=== PATIENT | female | born 1955 | race African-American/Black ===

== ENCOUNTER 2017-06-16 08:47 | Day surgery (SDC) | payer OTHER ==
[2017-06-15 13:50] VITALS: BMI 33.3
[2017-06-16] MEDS ORDERED: oxyCODONE HCL 5 MG TABLET PO PRN (09:27)
[2017-06-16] MEDS ORDERED: ONDANSETRON 4 MG/2 ML VIAL IVPUSH PRN (09:27)
[2017-06-16] MEDS ORDERED: LACTATED RINGERS SOLUTION 1,000 ML IV SCH (09:30)
[2017-06-16] MEDS ORDERED: LIDOCAINE HCL 1%, 10 MG/ML (20ML VIAL) ONE (11:43)
[2017-06-16] MEDS ORDERED: BUPIVACAINE HCL/PF 0.5% (5MG/ML) 10 ML VIAL ONE ×2 (11:43→12:35)
[2017-06-16] MEDS ORDERED: MIDAZOLAM HCL 2 MG/2 ML SINGLE DOSE VIAL ONE ×2 (11:43→12:10)
[2017-06-16] MEDS ORDERED: ceFAZolin SODIUM 1 GM VIAL ONE (11:56)
[2017-06-16] MEDS ORDERED: LIDOCAINE HCL/PF 2% SDV 5ML VIAL ONE (12:00)
[2017-06-16] MEDS ORDERED: BUPIVACAINE HCL/PF 0.5% (5MG/ML) 10 ML VIAL NR ONE ×2 (12:00→12:44)
[2017-06-16] MEDS ORDERED: LIDOCAINE HCL 1%, 10 MG/ML (20ML VIAL) INF ONE (12:00)
[2017-06-16] MEDS ORDERED: PROPOFOL 20 ML ONE (12:00)
[2017-06-16] MEDS ORDERED: BACITRACIN 50,000 UNITS VIAL TP ONE (12:25)
[2017-06-16] MEDS ORDERED: DEXAMETHASONE SOD PHOSPHATE 4 MG/1 ML VIAL ONE (12:35)
[2017-06-16] MEDS ORDERED: KETOROLAC TROMETHAMINE 30 MG/1 ML VIAL ONE (12:43)
[2017-06-16] MEDS ORDERED: DEXAMETHASONE SOD PHOSPHATE 4 MG/1 ML VIAL NR ONE (12:44)
--- NOTE | 2017-06-16 13:47 | OP ---
DATE OF OPERATION: 06/16/2017 SURGEON: Manohar Montoya MD ASSISTANTS: Diego Kapadia DPM; Zulema Daily, PGY3 PREPROCEDURE DIAGNOSIS: Left hammer digits 4 and 5. POSTPROCEDURE DIAGNOSIS: Left hammer digits 4 and 5. PROCEDURE: Left arthroplasty of 4th and 5th digits. ANESTHESIA: MAC sedation with local anesthetic. HEMOSTASIS: Pneumatic ankle tourniquet at 250 mmHg. ESTIMATED BLOOD LOSS: Minimal. MATERIALS: None. INJECTABLES: A 1:1 mixture of lidocaine 1% plain and Marcaine 0.5% plain, 10 mL. COMPLICATIONS: None. The patient was brought to the operating room and placed on the operating table in the supine position. A well-padded pneumatic ankle tourniquet was applied to the patient's left ankle. Once anesthesia was initiated the left foot was scrubbed, prepped and draped in the usual aseptic manner. A 1:1 mixture of lidocaine 1% plain and Marcaine 0.5% plain was infiltrated throughout the surgical site. Next the foot was exsanguinated using an Esmarch and the tourniquet inflated. Attention was first brought to the patient's left 4th digit where a linear incision was made over the PIPJ of the 4th toe. The incision was made to excise a corn present on the dorsal PIPJ. The skin flap was excised and passed from the operative field. Next the proximal interphalangeal joint was visualized and a transverse incision was made across the extensor tendon. The medial, lateral and plantar joint attachments were freed. Using a sagittal saw the head of the proximal phalanx was resected and passed from the operative field. Next the surgical site was copiously flushed with normal saline. The extensor tendon was repaired using 3-0 Vicryl and the skin repaired using 4-0 nylon. Next attention was brought to the 5th digit where a linear incision was made on the dorsal aspect of the 5th digit. The incision was deepened through the subcutaneous tissues. Care was taken to avoid and retract all vital neurovascular structures. Once the tendon was visualized it was transected at the level of the PIPJ. The medial, lateral and plantar joint attachments were freed and the head of the proximal phalanx visualized. Using a sagittal saw the head of the proximal phalanx was resected at an angle proximal lateral to distal medial. The resected bone was passed from the operative field. Next the surgical site was copiously flushed with normal saline, the tendon repaired with 3-0 Vicryl and the skin repaired with 4-0 nylon. Next the Betadine-soaked Adaptic, 4 x 4 gauze, Candie and Ant bandage was applied to the patient's left foot. The tourniquet was deflated and immediate hyperemia returned to all 5 digits. The patient was transferred from the OR to the recovery room with all vital signs stable and neurovascular status intact to the left lower extremity. Following a period of postoperative monitoring the patient was discharged home. All prescriptions and postoperative care were discussed prior to the procedure. KASSIE Peña/[id number]
[2017-06-16 14:39] VITALS: TEMP 98.2
[2017-06-16 17:52] VITALS: BP 149/81; PULSE 64
--- NOTE | 2017-06-20 17:01 | PATH ---
Surgical Pathology Report Patient Name: LINDA OSBORN [facility]. Rec. #: [id number] /Age/Gender: 1955 (Age: 61) / F Account: [id number] Location: [facility] SURGICAL Taken: 06/16/2017 Received: 06/16/2017 Reported: 06/20/2017 Physicians: Manohar Montoya DPM Specimen(s) Received A: SKIN ANDBONE FRAGMENTS, LEF 4TH TOE B: SKIN AND BONE FRAGMENTS LEFT 5TH TOE Clinical History Hammertoe left fourth and fifth digits Final Diagnosis A. SKIN AND BONE FRAGMENTS, LEFT 4TH TOE: FRAGMENTS OF BONE WITH FATTY MARROW SHOWING DEGENERATIVE CHANGE. FRAGMENTS OF SKIN WITH HYPERKERATOSIS. B. SKIN AND BONE FRAGMENTS, LEFT 5TH TOE: FRAGMENTS OF BONE WITH FATTY MARROW SHOWING DEGENERATIVE CHANGE. FRAGMENTS OF SKIN WITH HYPERKERATOSIS. Electronically Signed Annabel Collins M.D. Gross Description A. Received in formalin labeled "skin and bone left fourth toe," is a 1.0 x 0.5 x 0.5 cm wood, irregular portion of bone. Also received within the same container is a 2.0 x 1.0 cm wood, elliptical portion of skin. Chief Orthoptist sections are submitted in one cassette, following decalcification. B. Received in formalin labeled "skin and bone left fifth toe," is a 1.0 x 0.5 x 0.5 cm wood, irregular portion of bone. Also received within the same container is a 1.5 x 0.7 cm wood, elliptical portion of skin. Chief Orthoptist sections are submitted in one cassette, following decalcification. /06/17/201706/17/2017
== END 2017-06-16 17:15 | disposition home or self-care (01) ==
LOC: JASU-SURG 08:47
PROVIDERS: ATTEND Podiatrist
PROC: 0SRQ0JZ Replacement of Left Toe Phalangeal Joint with Synthetic Substitute, Open Approach (ICD-10-PCS; principal; 2017-06-16 11:00)
DX: M20.42 Other hammer toe(s) (acquired), left foot (principal)
CPT/HCPCS: 73630-TC-LT; 82962; 88304-TC; 88311-TC; 94760